=== PATIENT | male | born 1995 | race Caucasian/White ===

== ENCOUNTER 2020-01-22 14:22 | Emergency (ER) | payer OTHER ==
--- NOTE | 2020-01-22 15:02 | EDM.PDOC ---
<ColtonOlvin Stanislaw - Last Filed: 01/22/20 14:57> ED HPI GENERAL MEDICAL PROBLEM - General Chief Complaint: Genitourinary Problem Stated Complaint: L SIDE GROIN PAIN Time Seen by Provider: 01/22/20 14:35 Source of Information: Reports: Patient History Limitations: Reports: No Limitations - History of Present Illness INITIAL COMMENTS - FREE TEXT/NARRATIVE: Damari is a 24 YO male that presents to the ED with left groin pain. Pain began two days ago when he was sitting on a couch. Described as a sharp, stabbing sensation that waxes and wanes. Rated at a 5/10. Nothing noted to make pain better. Pain worsens with movement. Denies fever, nausea, vomiting, dysuria, hematuria, change in frequency or color. He took Advil yesterday with no relief of symptoms. Onset: Sudden Onset Date: 02/17/20 Duration: Day(s): Location: Reports: Abdomen, Radiates to (Groin.) Quality: Reports: Sharp, Stabbing Improves with: Reports: None Worsens with: Reports: Movement Left Groin Pain Score (Numeric/FACES): 5 - Related Data Allergies Allergy/AdvReac Type Severity Reaction Status Date / Time No Known Allergies Allergy Verified 01/22/20 14:33 Home Meds: Home Meds . [No Known Home Meds] 01/22/20 [History] Past Medical History - Past Health History Medical/Surgical History: Denies Medical/Surgical History Social & Family History - Tobacco Use Smoking Status *Q: Never Smoker - Caffeine Use Caffeine Use: Reports: Soda - Recreational Drug Use Recreational Drug Use: Yes Drug Use in Last 12 Months: No Recreational Drug Type: Reports: Marijuana/Hashish Recreational Drug Last Use: "not in a long time" ED ROS GENERAL - Review of Systems Review Of Systems: See Below Constitutional: Denies: Fever, Chills GI/Abdominal: Reports: Abdominal Pain. Denies: Constipation, Diarrhea, Decreased Appetite, Nausea, Vomiting : Denies: Dysuria, Flank Pain, Frequency, Hematuria ED EXAM, RENAL/ - Physical Exam Exam: See Below Exam Limited By: No Limitations General Appearance: Alert, No Apparent Distress Head: Atraumatic, Normocephalic Respiratory/Chest: No Respiratory Distress, Lungs Clear, Normal Breath Sounds, No Accessory Muscle Use, Chest Non-Tender Cardiovascular: Regular Rate, Rhythm, No Gallop, No JVD, No Murmur, No Rub GI/Abdominal: Normal Bowel Sounds, Soft, No Distention (Tender to palpation in LLQ.), Tender Back Exam: CVA Tenderness (L). No: CVA Tenderness (R) Neurological: Alert, Oriented, Normal Cognition Skin Exam: Warm, Dry, Normal Color Departure - Departure Disposition: Home, Self-Care 01 Clinical Impression: Abdominal pain Qualifiers: Abdominal location: left lower quadrant Qualified Code(s): R10.32 - Left lower quadrant pain - Discharge Information Instructions: Abdominal Pain, Adult, [id number] Referrals: PCP,None [Primary Care Provider] - Forms: ED Department Discharge Additional Instructions: You were seen in the emergency department today for left lower quadrant a bdominal pain that radiates into your groin. He work-up included blood work, urinalysis, and a CT scan of your abdomen pelvis. Your work-up was found to be normal. There was no blood in your urine to suggest a kidney stone, and no kidney stone was visualized on the CT scan. Review of the CT scan images did show increased stool throughout your colon. It is definite possibility that your discomfort in your left lower quadrant is due to constipation. You have been provided a bottle of magnesium citrate. Recommend you drink this when you get home. This will produce a number of bowel movements some of which may be loose. You should have relief of your left lower quadrant discomfort after you have cleanse your colon. If you experience any worsening symptoms such as worsening pain, fever, chills, nausea, vomiting, or any other symptoms of concern, please do not hesitate to return to the emergency department. Sepsis Event Note (ED) - Evaluation Sepsis Screening Result: No Definite Risk <Marita Mendosa - Last Filed: 01/25/20 11:14> Course - Vital Signs Last Recorded V/S: Last Vital Signs Temp 97.8 F 01/22/20 14:37 Pulse 75 01/22/20 14:37 Resp 16 01/22/20 14:37 BP 137/95 H 01/22/20 14:37 Pulse Ox 98 01/22/20 14:37 - Orders/Labs/Meds Labs: Laboratory Tests 01/22/20 01/22/20 01/22/20 Range/Units 15:15 15:15 15:43 WBC 8.89 (4.23-9.07) K/mm3 RBC 4.69 (4.63-6.08) M/mm3 Hgb 14.9 (13.7-17.5) gm/dl Hct 41.5 (40.1-51.0) % MCV 88.5 (79.0-92.2) fl MCH 31.8 (25.7-32.2) pg MCHC 35.9 H (32.2-35.5) g/dl RDW Std Deviation 38.8 (35.1-43.9) fL Plt Count 314 (163-337) K/mm3 MPV 10.1 (9.4-12.3) fl Neut % (Auto) 59.4 (34.0-67.9) % Lymph % (Auto) 30.7 (21.8-53.1) % [place] % (Auto) 8.3 (5.3-12.2) % Eos % (Auto) 1.0 (0.8-7.0) Baso % (Auto) 0.3 (0.1-1.2) % Neut # (Auto) 5.27 (1.78-5.38) K/mm3 Lymph # (Auto) 2.73 (1.32-3.57) K/mm3 [place] # (Auto) 0.74 (0.30-0.82) K/mm3 Eos # (Auto) 0.09 (0.04-0.54) K/mm3 Baso # (Auto) 0.03 (0.01-0.08) K/mm3 Sodium 140 (136-145) mEq/L Potassium 3.6 (3.5-5.1) mEq/L Chloride 103 (98-107) mEq/L Carbon Dioxide 26 (21-32) mEq/L Anion Gap 14.6 (5-15) BUN 11 (7-18) mg/dL Creatinine 1.0 (0.7-1.3) mg/dL Est Cr Clr Drug Dosing TNP Estimated GFR (MDRD) > 60 (>60) mL/min BUN/Creatinine Ratio 11.0 L (14-18) Glucose 126 H (74-106) mg/dL Calcium 8.7 (8.5-10.1) mg/dL Total Bilirubin 0.4 (0.2-1.0) mg/dL AST 20 (15-37) U/L ALT 40 (16-63) U/L Alkaline Phosphatase 56 (46-116) U/L C-Reactive Protein 1.4 H* (<1.0) mg/dL Total Protein 7.3 (6.4-8.2) g/dl Albumin 3.7 (3.4-5.0) g/dl Globulin 3.6 gm/dL Albumin/Globulin Ratio 1.0 (1-2) Urine Color Yellow (Yellow) Urine Appearance Clear (Clear) Urine pH 6.5 (5.0-8.0) Ur Specific [place] > or = 1.030 (1.005-1.030) Urine Protein Negative (Negative) Urine Glucose (UA) Negative (Negative) Urine Ketones Negative (Negative) Urine Occult Blood Negative (Negative) Urine Nitrite Negative (Negative) Urine Bilirubin Negative (Negative) Urine Urobilinogen 0.2 (0.2-1.0) Ur Leukocyte Esterase Negative (Negative) Urine RBC 0-5 (0-5) /hpf Urine WBC 0-5 (0-5) /hpf Ur Squamous Epith Cells 0-5 (0-5) /hpf Urine Bacteria Few (FEW) /hpf Urine Mucus Few (FEW) /hpf Meds: Medications Discontinued Medications Generic Name Dose Route Start Last Admin Trade Name Gabe PRN Reason Stop Dose Admin Lorazepam 0.5 mg 01/22/20 15:23 01/22/20 15:36 Ativan IVPUSH 01/22/20 15:24 Not Given ONETIME ONE Magnesium Citrate 296 ml 01/22/20 16:19 01/22/20 16:35 Citrate Of Magnesia PO 01/22/20 16:20 296 ml ONETIME ONE Administration - Re-Assessments/Exams Free Text/Narrative Re-Assessment/Exam: I have reviewed and agree with the HPI, ROS, and exam as documented by PEPE Bah student, however, on my exam, pt c/o pain to the LLQ abdomen that occasionally radiates to the left groin. He does have tenderness to palpation of the LLQ and left lateral abdomen. I have ordered CBC, CMP, CRP, urinalysis, and a CT scan of the abdomen pelvis without contrast. Suspicion is for a kidney stone, however patient also states that he has not been regular with his bowel movements recently, therefore constipation is also in the differential. Patient states that he voided prior to coming to the ER so it may be a while before he can give us a urine sample. 01/22/20 16:25 Patient's hematology and urinalysis were grossly unremarkable. There was no blood or infection in his urine. WBCs are normal. CT scan of the abdomen pelvis showed no acute findings, however on review of the CT scan he does have increased stool throughout the ascending, transverse, and descending colons. We will send him home with a bottle of magnesium citrate. Discussed return precautions. Discharge instructions as documented. Departure - Departure Time of Disposition: 16:27 Condition: Good - Discharge Information *PRESCRIPTION DRUG MONITORING PROGRAM REVIEWED*: No *COPY OF PRESCRIPTION DRUG MONITORING REPORT IN PATIENT GARETT: No
[2020-01-22] MEDS ORDERED: LORazepam 2 MG/ML SDV IVPUSH ONE (15:23)
[2020-01-22] MEDS ORDERED: Magnesium Citrate Solution 296 ML Bottle PO ONE (16:19)
--- NOTE | 2020-01-23 14:27 | CT ---
CT abdomen and pelvis Technique: Multiple axial sections were obtained from above the dome of the diaphragm inferiorly through the pubic symphysis. Intravenous and oral contrast not utilized. Study has been performed as a ureteral stone protocol. Findings: Kidneys show no abnormal calcifications. Ureter show no dilatation. No ureteral stone is seen. No bladder calculi are seen. Visualized lung bases contain no focal abnormality. Liver shows no focal parenchymal abnormality. Gallbladder is collapsed but shows no calcified gallstones. Spleen appears within normal limits. Adrenal glands show no nodule. Pancreas appears within normal limits. Aorta shows no aneurysm. No retroperitoneal adenopathy or mesenteric abnormalities are seen. Appendix is seen which is normal. No pelvic mass or adenopathy is seen. No free fluid or inflammatory change is appreciated. Bone window settings were reviewed which show no acute osseous finding. Impression: 1. No renal calculi, ureteral dilatation or ureteral stone is seen. 2. Nothing acute is appreciated on noncontrast CT study of the abdomen and pelvis performed as a ureteral stone protocol. Diagnostic code #1 This report was dictated in MDT I agree with preliminary report from [facility], finalized on 01/22/20, 4:58 PM Central Daylight Time
== END 2020-01-22 16:37 | disposition home or self-care (01) ==
LOC: JD.ED 14:22
DX: R10.32 Left lower quadrant pain (principal)
CPT/HCPCS: 36415; 74176; 80053; 81001; 85025; 86140; 99284; A9270; 99283